=== PATIENT | male | born 1980 | race Hispanic/Latino ===

== ENCOUNTER 2020-04-01 18:28 | Inpatient (IN) | payer BC ==
[~2020-04-01] VITALS: Ht 177.8 cm; Wt 106.0 kg
[2020-04-01 19:22] LABS: BASOPHILS % (AUTO) 0.4 % (0.0-5.0); EOSINOPHILS % (AUTO) 0.3 % (0.0-8.0); MEAN CORPUSCULAR HEMOGLOBIN 28.4 pg (27.0-33.0); MEAN CORPUSCULAR HGB CONC 33.7 g/dL (32.0-36.0); MEAN CORPUSCULAR VOLUME 84.2 fL (79-99); MONOCYTES % (AUTO) 8.5 % (3.0-13.0); NEUTROPHILS % (AUTO) 81.5 % (40.0-77.0); PLATELET COUNT (AUTO) 195 K/uL (130-400); RED BLOOD CELL COUNT(AUTO) 5.82 MIL/uL (4.50-6.20); RED CELL DISTRIBUTION WIDTH 12.7 % (11.0-15.5); WHITE BLOOD COUNT (AUTO) 14.4 K/uL (4.8-10.8)
[2020-04-01 19:28] LABS: APPEARANCE,URINE Clear (CLEAR); BILIRUBIN,URINE Small (NEGATIVE); COLOR,URINE Dark Yellow (YELLOW); GLUCOSE, URINE (UA) Negative (NEGATIVE); KETONES,URINE Trace mg/dL (NEGATIVE); LEUKOCYTE ESTERASE ,URINE Trace (NEGATIVE); NITRATE,URINE Negative (NEGATIVE); OCCULT BLOOD,URINE Negative (NEGATIVE); PH,URINE 6.5 (5.0-8.0); PROTEIN,URINE Trace mg/dL (NEGATIVE)
[2020-04-01 19:33] LABS: CREATININE 1.2 mg/dL (0.5-1.5); POTASSIUM 3.5 mmol/L (3.5-5.1)
[2020-04-01 19:39] LABS: ALBUMIN 3.4 g/dL (3.5-5.0); BILIRUBIN,TOTAL 1.3 mg/dL (0.2-1.0); TOTAL PROTEIN, SERUM 7.4 g/dL (6.0-8.3)
[2020-04-01 19:50] LABS: MUCUS,URINE Moderate LPF (None Seen)
[2020-04-01 19:51] LABS: BACTERIA,URINE Few /HPF (None Seen)
[2020-04-01] MEDS ORDERED: IOHEXOL-350 75 ML VIAL IV ONE (20:18)
[2020-04-01] MEDS ORDERED: ONDANSETRON HCL 4 MG/2 ML VIAL ONE (21:55)
[2020-04-01] MEDS ORDERED: LEVOFLOXACIN 750 MG/D5W 150 ML 150 ML ONE (21:55)
[2020-04-01] MEDS ORDERED: MORPHINE SULFATE 4 MG/1ML SYG ONE (21:55)
[2020-04-01] MEDS ORDERED: ACETAMINOPHEN 325 MG TAB ONE (21:55)
[2020-04-01] MEDS ORDERED: METRONIDAZOLE 500MG/100ML BAG 100 ML ONE (21:57)
[2020-04-01] MEDS: SODIUM CHLORIDE 0.9% 1000ML 1,000 ML IV SCH (22:05)
[2020-04-01] MEDS ORDERED: LACTULOSE 20 GM/30 ML UDCUP PO PRN (22:15)
[2020-04-01] MEDS ORDERED: ACETAMINOPHEN 325 MG TAB PO PRN (22:15)
[2020-04-01] MEDS ORDERED: MORPHINE SULFATE 2 MG/ML 1ML SYG IV PRN (22:15)
[2020-04-01] MEDS ORDERED: ONDANSETRON HCL 4 MG/2 ML VIAL IV PRN (22:15)
[2020-04-01 23:05] LABS: CRP QUANTITATIVE 207.2 mg/L (0.00-9.0)
[2020-04-01 23:46] VITALS: BP 120/68
[2020-04-02 03:23] VITALS: BP 135/83
[2020-04-02] MEDS: ZOSYN 3.375GM+NS 50ML 50 ML IV SCH ×3 (04:17→21:40)
[2020-04-02 04:35] LABS: BASOPHILS % (AUTO) 0.3 % (0.0-5.0); EOSINOPHILS % (AUTO) 0.4 % (0.0-8.0); HEMATOCRIT 48.6 % (42-54); LYMPHOCYTES % (AUTO) 10.5 % (21.0-51.0); MEAN CORPUSCULAR HEMOGLOBIN 28.5 pg (27.0-33.0); MEAN CORPUSCULAR HGB CONC 33.1 g/dL (32.0-36.0); MEAN CORPUSCULAR VOLUME 86.2 fL (79-99); MONOCYTES % (AUTO) 7.7 % (3.0-13.0); NEUTROPHILS % (AUTO) 80.7 % (40.0-77.0); PLATELET COUNT (AUTO) 222 K/uL (130-400); RED BLOOD CELL COUNT(AUTO) 5.64 MIL/uL (4.50-6.20); RED CELL DISTRIBUTION WIDTH 12.7 % (11.0-15.5); WHITE BLOOD COUNT (AUTO) 14.9 K/uL (4.8-10.8)
[2020-04-02 04:51] LABS: CREATININE 1.1 mg/dL (0.5-1.5); POTASSIUM 3.3 mmol/L (3.5-5.1)
[2020-04-02] MEDS: SODIUM CHLORIDE 0.9% 1000ML 1,000 ML IV SCH (06:05)
[2020-04-02] MEDS: IBUPROFEN 600 MG TABLET PO PRN ×3 (06:23→20:07)
[2020-04-02] MEDS: METRONIDAZOLE 500MG/100ML BAG 100 ML IV SCH ×3 (06:23→21:41)
[2020-04-02 08:13] VITALS: BP 113/56
[2020-04-02] MEDS ORDERED: POTASSIUM CHLORIDE 20MEQ/100ML 100 ML IV PRN (09:00)
[2020-04-02] MEDS ORDERED: POTASSIUM CHLORIDE 10% ELIXIR 20 MEQ/15 ML UDCUP PO PRN (09:00)
[2020-04-02] MEDS ORDERED: POTASSIUM CHLORIDE 20 MEQ ERTAB PO PRN (09:00)
[2020-04-02] MEDS: FAMOTIDINE/PF 20 MG/2 ML VIAL IV SCH ×2 (09:44→21:41)
[2020-04-02] MEDS: LACTATED RINGERS 1000ML 1,000 ML IV SCH ×2 (09:45→17:03)
[2020-04-02] MEDS: POTASSIUM CHLORIDE 20MEQ/100ML 100 ML IV PRN ×2 (09:45→14:35)
[2020-04-02 11:55] VITALS: BP 125/75
--- NOTE | 2020-04-02 14:30 | NUR ---
CM NOTE/IA MEET WITH PATIENT IN ROOM. PER PATIENT, IS INDEPENDENT WITH ADLS, LIVES WITHSPOUSE AND MINOR SON, NO DME IN USE, NO HOME HEALTH OR PROVIDER SERVICES AND FEELS SAFE TO RETURN HOME ONCE DISCHARGED FROM HOSPITAL. Addendum: 04/03/20 at 1431 by WENDY PITTMAN RN CM Amended: Links added.
[2020-04-02 15:30] VITALS: BP 125/69
[2020-04-02] MEDS: ACETAMINOPHEN 325 MG TAB PO PRN (16:56)
[2020-04-02 19:44] VITALS: BP 138/74
[2020-04-02 23:39] VITALS: BP 100/52
[2020-04-03] MEDS: ACETAMINOPHEN 325 MG TAB PO PRN (00:30)
[2020-04-03] MEDS: LACTATED RINGERS 1000ML 1,000 ML IV SCH ×3 (01:03→16:59)
[2020-04-03 04:00] VITALS: BP_SYST 113; BP_SYST 146; BP_DIAS 69; BP_DIAS 85
[2020-04-03] MEDS: IBUPROFEN 600 MG TABLET PO PRN ×2 (05:22→17:27)
[2020-04-03] MEDS: METRONIDAZOLE 500MG/100ML BAG 100 ML IV SCH ×3 (05:22→20:21)
[2020-04-03] MEDS: ZOSYN 3.375GM+NS 50ML 50 ML IV SCH ×3 (05:22→20:21)
[2020-04-03 06:09] LABS: BASOPHILS % (AUTO) 0.3 % (0.0-5.0); EOSINOPHILS % (AUTO) 1.1 % (0.0-8.0); HEMATOCRIT 44.4 % (42-54); LYMPHOCYTES % (AUTO) 12.2 % (21.0-51.0); MEAN CORPUSCULAR HEMOGLOBIN 28.2 pg (27.0-33.0); MEAN CORPUSCULAR HGB CONC 33.1 g/dL (32.0-36.0); MEAN CORPUSCULAR VOLUME 85.1 fL (79-99); MONOCYTES % (AUTO) 9.8 % (3.0-13.0); NEUTROPHILS % (AUTO) 76.2 % (40.0-77.0); PLATELET COUNT (AUTO) 188 K/uL (130-400); RED BLOOD CELL COUNT(AUTO) 5.22 MIL/uL (4.50-6.20); RED CELL DISTRIBUTION WIDTH 12.6 % (11.0-15.5); WHITE BLOOD COUNT (AUTO) 11.7 K/uL (4.8-10.8)
[2020-04-03 06:19] LABS: CREATININE 1.3 mg/dL (0.5-1.5); POTASSIUM 3.9 mmol/L (3.5-5.1)
[2020-04-03] MEDS: FAMOTIDINE/PF 20 MG/2 ML VIAL IV SCH ×2 (08:49→20:21)
[2020-04-03 09:32] VITALS: BP 98/56
[2020-04-03 11:51] VITALS: BP 114/70
[2020-04-03 16:12] VITALS: BP 116/73
[2020-04-03] MEDS ORDERED: IOHEXOL 350 MG/ML 100ML INFUS..BTL IV ONE (16:21)
[2020-04-03 19:56] VITALS: BP 126/76
[2020-04-04] VITALS (7 sets, daily range): BP systolic 124–143; BP diastolic 67–93
[2020-04-04 04:33] LABS: BASOPHILS % (AUTO) 0.7 % (0.0-5.0); EOSINOPHILS % (AUTO) 2.8 % (0.0-8.0); HEMATOCRIT 44.2 % (42-54); LYMPHOCYTES % (AUTO) 19.5 % (21.0-51.0); MEAN CORPUSCULAR HEMOGLOBIN 28.1 pg (27.0-33.0); NEUTROPHILS % (AUTO) 67.4 % (40.0-77.0); PLATELET COUNT (AUTO) 217 K/uL (130-400); RED CELL DISTRIBUTION WIDTH 12.3 % (11.0-15.5); WHITE BLOOD COUNT (AUTO) 7.1 K/uL (4.8-10.8)
[2020-04-04] MEDS: METRONIDAZOLE 500MG/100ML BAG 100 ML IV SCH ×3 (05:03→20:57)
[2020-04-04] MEDS: ZOSYN 3.375GM+NS 50ML 50 ML IV SCH ×3 (05:03→22:09)
[2020-04-04 05:14] LABS: ALBUMIN 2.9 g/dL (3.5-5.0); BILIRUBIN,TOTAL 0.8 mg/dL (0.2-1.0); CREATININE 1.1 mg/dL (0.5-1.5); PHOSPHORUS 2.5 mg/dL (2.5-4.9); POTASSIUM 3.5 mmol/L (3.5-5.1)
[2020-04-04 05:28] LABS: ERYTHROCYTE SEDIMENTATION RATE 35 MM/HR (0-15)
[2020-04-04] MEDS: LACTATED RINGERS 1000ML 1,000 ML IV SCH ×2 (05:30→09:03)
[2020-04-04 05:51] LABS: CRP QUANTITATIVE 261.4 mg/L (0.00-9.0)
[2020-04-04] MEDS: ACETAMINOPHEN 325 MG TAB PO PRN (06:06)
[2020-04-04] MEDS: FAMOTIDINE/PF 20 MG/2 ML VIAL IV SCH ×2 (08:27→20:56)
--- NOTE | 2020-04-04 10:43 | NUR ---
RD NOTIFICATION - PPN RECOMMENDATIONS Pt admitted with Sigmoid Diverticulitis with Perforation (contained as per EMR). Pt s/p Surgical evaluation; continue with conservative management. Recommend Clinimix E 4.25/5 @85mls per hour to provide 87gm protein, 694kcal. (Nutritional needs: 75-90gm Protein, 1875-2250kcals per day). Short term altered means nutrition. Recs placed in Pt chart. RD to continue to monitor. Please notify as additional nutrition concerns arise. Thank you. Addendum: 04/04/20 at [address] RD Amended: Links added.
[2020-04-05 03:37] VITALS: BP 134/78
[2020-04-05 04:04] LABS: BASOPHILS % (AUTO) 0.6 % (0.0-5.0); EOSINOPHILS % (AUTO) 3.3 % (0.0-8.0); HEMATOCRIT 45.8 % (42-54); LYMPHOCYTES % (AUTO) 23.5 % (21.0-51.0); MEAN CORPUSCULAR HEMOGLOBIN 28.3 pg (27.0-33.0); MEAN CORPUSCULAR HGB CONC 33.6 g/dL (32.0-36.0); MEAN CORPUSCULAR VOLUME 84.2 fL (79-99); MONOCYTES % (AUTO) 9.1 % (3.0-13.0); NEUTROPHILS % (AUTO) 63.1 % (40.0-77.0); PLATELET COUNT (AUTO) 282 K/uL (130-400); RED BLOOD CELL COUNT(AUTO) 5.44 MIL/uL (4.50-6.20); RED CELL DISTRIBUTION WIDTH 12.3 % (11.0-15.5); WHITE BLOOD COUNT (AUTO) 6.7 K/uL (4.8-10.8)
[2020-04-05 04:30] LABS: CREATININE 1.3 mg/dL (0.5-1.5); CRP QUANTITATIVE 133.4 mg/L (0.00-9.0); POTASSIUM 3.5 mmol/L (3.5-5.1)
[2020-04-05] MEDS: METRONIDAZOLE 500MG/100ML BAG 100 ML IV SCH (04:50)
[2020-04-05 05:10] LABS: ERYTHROCYTE SEDIMENTATION RATE 19 MM/HR (0-15)
[2020-04-05] MEDS: ZOSYN 3.375GM+NS 50ML 50 ML IV SCH (05:50)
[2020-04-05 08:00] VITALS: BP 126/77
[2020-04-05] MEDS: FAMOTIDINE/PF 20 MG/2 ML VIAL IV SCH (08:29)
[2020-04-05 11:13] VITALS: BP 136/82
== END 2020-04-05 15:17 | disposition home or self-care (01) | DRG 871 ==
LOC: EDH 18:28 → EDHIP 22:05 → 4BH 23:19
PROVIDERS: ADMIT Internal Medicine; ATTEND Internal Medicine
DX: A41.9 Sepsis, unspecified organism (principal); K65.9 Peritonitis, unspecified; K57.20 Diverticulitis of large intestine with perforation and abscess without bleeding; K76.0 Fatty (change of) liver, not elsewhere classified; E66.9 Obesity, unspecified; E87.6 Hypokalemia; Z68.33 Body mass index [BMI] 33.0-33.9, adult
CPT/HCPCS: 36415; 71045; 74177; 74178; 80048; 80053; 81001; 83605; 83690; 83735; 84100; 84132; 84145; 85025; 85651; 86140; 87040; 87088; G0378; J1956; J2270; J2405; J2543; J3480; J3490; J7120; Q9967